=== PATIENT | female | born 1980 | race Caucasian/White ===

== ENCOUNTER 2019-12-22 01:36 | Emergency (ER) | payer OTHER ==
[~2019-12-22] VITALS: Ht 165.1 cm; Wt 73.9 kg
[2019-12-22 01:53] VITALS: BP 122/88; Ht 165.1 cm; Wt 73.9 kg
[2019-12-22 04:35] LABS: BASOPHIL % 0.5 % (0-2); PLATELET COUNT 336 x10^3mcL (130-400); RED CELL DISTRIBUTION WIDTH 12.9 % (11.5-14.5)
[2019-12-22 04:59] LABS: CALCIUM 9.1 mg/dL (8.5-10.1); CARBON DIOXIDE 27.2 mmol/L (21-32); CHLORIDE SERUM 103 mmol/L (98-107); CREATININE SERUM 0.7 mg/dL (0.6-1.0); GFR1 > 60 mL/min; GLUCOSE SERUM 97 mg/dL (74-106); SODIUM SERUM 139 mmol/L (136-145)
[2019-12-22 05:03] LABS: ALKALINE PHOSPHATASE 73 U/L (46-116); ALT/SGPT 23 U/L (14-59); AST/SGOT 17 U/L (15-37); BILIRUBIN TOTAL 0.21 mg/dL (0.20-1.00); TOTAL PROTEIN, SERUM 7.9 g/dL (6.4-8.2)
[2019-12-22 05:08] LABS: AMPHETAMINE QUAL UR POSITIVE (See below)
== END 2019-12-22 04:42 | disposition left against medical advice (07) ==
LOC: ED 01:36
PROVIDERS: Student in an Organized Health Care Education/Training Program
DX: F22 Delusional disorders (principal); R20.2 Paresthesia of skin; M79.10 Myalgia, unspecified site; Z87.442 Personal history of urinary calculi; Z02.79 Encounter for issue of other medical certificate
CPT/HCPCS: G0480